=== PATIENT | female | born 2000 | race Caucasian/White ===

== ENCOUNTER 2022-10-06 16:50 | Emergency (ER) | payer OTHER ==
[~2022-10-06] VITALS: Ht 157.5 cm; Wt 66.2 kg
[2022-10-06 16:50] VITALS: BP_SYST 126
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
[2022-10-06] MEDS ORDERED: KETOROLAC TROMETHAMINE 60 MG/2 ML VIAL IM ONE (18:00)
--- NOTE | 2022-10-06 18:01 | NUR ---
MEDICATED ORDERED. NO CHANGES
--- NOTE | 2022-10-06 18:52 | NUR ---
TAKEN TO RADIOLOGY, AMBULATORY
--- NOTE | 2022-10-06 19:03 | NUR ---
RETURNED FROM RADIOLOGY, BACK TO BED #8
--- NOTE | 2022-10-06 19:14 | NUR ---
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
[2022-10-06] MEDS ORDERED: DICL75TA5 PO (20:24)
[2022-10-06 20:44] VITALS: BP_SYST 126
--- NOTE | 2022-10-06 20:44 | NUR ---
Patient given written and verbal discharge instructions and verbalizes understanding. ER MD discussed with patient the results and treatment provided. Patient in stable condition. ID arm band removed. Rx of VOLTAREN given. Patient educated on pain management and to follow up with PMD. Pain Scale 0/10 Opportunity for questions provided and answered. Medication side effect fact sheet provided.
== END 2022-10-06 20:44 | disposition home or self-care (01) ==
LOC: SED 16:50
DX: S20.221A Contusion of right back wall of thorax, initial encounter (principal); Z79.899 Other long term (current) drug therapy; V89.2XXA Person injured in unspecified motor-vehicle accident, traffic, initial encounter; Y93.89 Activity, other specified; Y92.89 Other specified places as the place of occurrence of the external cause; Y99.8 Other external cause status
CPT/HCPCS: 99283; 96374; 72072; 81025; J1885